=== PATIENT | female | born 1985 | race Caucasian/White ===

== ENCOUNTER 2016-12-27 08:42 | Emergency (ER) | payer OTHER ==
[2016-12-27 08:57] VITALS: BP 135/87
--- NOTE | 2016-12-27 09:21 | ERNOTE ---
ENT HPI Date of Service: 12/27/16 Presenting Symptoms: eye pain Source: patient - Immun/Allergies/Home Medications Immunizations: IMMUNIZATION HX Immunizations Up to Date No History of Influenza Vaccine No Hx Pneumococcal Vaccination No Allergies/Adverse Reactions: Allergies Allergy/AdvReac Type Severity Reaction Status Date / Time No Known Allergies Allergy Verified 07/04/16 10:57 Home Medications: HOME MEDICATIONS Neomy Sulf/Polymyx B Sulf/Hc [Cortisporin Ophthalmic Suspension] 2 drop LEFTEYE BID #8 ml 12/27/16 [Last Taken Unknown] - History of Present Illness Severity: Present: mild ENT Location: Present: eye (L) Prearrival Treatment: Present: flushing eys Associated Symptoms - ENT: Reports: denies symptoms Review of Systems - Review of Systems Constitutional: Present: See HPI EYE: Present: tearing ENT: Present: no symptoms reported Respiratory: Present: no symptoms reported Cardiology: Present: no symptoms reported Gastrointestinal/Abdominal: Present: no symptoms reported Genitourinary: Present: no symptoms reported Musculoskeletal: Present: no symptoms reported Skin: Present: no symptoms reported Neurological: Present: no symptoms reported Endocrine: Present: no symptoms reported Hematologic/Lymphatic: Present: no symptoms reported Psych: Present: no symptoms reported - Patient's Past Medical History Patient History - Medical: Other Patient History - Cardiac/Respiratory: No pertinent hx Patient History - Cancer: No Hx of Cancer Patient History - Surgical Procedures: Other Patient History - Other: None - Social History Living Situations: home Abuse History: No History of abuse Psych History: No pertinent hx Smoking Status: Current every day smoker Have you smoked in the past 12 months: Yes Do you dip or chew tobacco: No Patient requests Smoking Cessation Consult: No Initiate information on Smoking Cessation: No Alcohol Use: none Drug Use: none - Immunizations Immunizations Up to Date: No Hx Pneumococcal Vaccination: No History of Influenza Vaccine: No Physical Exam - Physical Exam General Appearance: Present: wd/wn, alert, mild distress Eye Exam: Normal inspection: right, PERRL: bilateral, EOMI: bilateral, Eye drainage: left - clear Ears, Nose, Throat: Present: normal ENT inspection, hearing grossly normal, normal pharynx Neck: Present: normal inspection, nontender Respiratory: Present: no respiratory distress, normal breath sounds, no accessory muscle use, chest nontender, lungs clear Cardiovascular/Chest: Present: regular rate, rhythm, no murmur, normal peripheral pulses Gastrointestinal/Abdominal: Present: normal bowel sounds, nontender, nondistended, soft, no organomegaly Rectal Exam: Present: deferred Back Exam: Present: normal inspection, normal range of motion Extremity Exam: Present: normal inspection, non-tender, no edema, normal range of motion Neurological Exam: Present: alert, oriented, normal mood/affect Skin Exam: Present: normal color, warm/dry Lymphatic Exam: Present: no adenopathy ED Progress - Vital Signs Patient's Vital Signs:: I have reviewed the patient's vital signs. Vital Signs: Vital Signs 12/27/16 08:54 Temperature 36 C L Pulse Rate 113 H Respiratory 14 Rate Blood Pressure 135/87 O2 Sat by Pulse 98 Oximetry - Progress/Reassessment Chief Complaint: Eye Injury/Trauma Progress:: Unchanged - Transfer of Care Expected Disposition: Discharge Departure Clinical Impression: Chemical conjunctivitis of left eye - Departure Disposition: Home self-care Condition: Good Instructions: Chemical Conjunctivitis, [id number] Prescriptions: Neomy Sulf/Polymyx B Sulf/Hc [Cortisporin Ophthalmic Suspension] 2 drop LEFTEYE BID #8 ml
== END 2016-12-27 09:32 | disposition home or self-care (01) ==
LOC: ER 08:42
DX: H10.212 Acute toxic conjunctivitis, left eye (principal); F17.210 Nicotine dependence, cigarettes, uncomplicated